=== PATIENT | male | born 1980 ===

== ENCOUNTER → 2022-02-06 11:20 | Outpatient (CLI) | payer OTHER, SELFPAY ==
--- NOTE | 2022-02-06 11:31 | XR_ITS ---
FINAL REPORT CLINICAL HISTORY: HX OF BROKEN L HALLUX 1 YR AGO FINDINGS: 3 views of the left foot were obtained. There is no acute fracture or dislocation. The joint spaces are intact. There is a small chronic calcification adjacent to the 1st interphalangeal joint. IMPRESSION: No acute process. Reviewed, Interpreted and Dictated by Adolfo Berkowitz III, MD Transcribed by Abel Leonardo Authenticated and [facility]
== END ==
DX: S92.412A Displaced fracture of proximal phalanx of left great toe, initial encounter for closed fracture (principal)
CPT/HCPCS: 73630